=== PATIENT | male | born 1950 | race Caucasian/White ===

== ENCOUNTER 2019-09-25 18:51 | Emergency (ER) | payer OTHER, SELFPAY ==
[2019-09-25] VITALS (25 sets, daily range): BP systolic 175–197; BP diastolic 90–109; PULSE 61–72; RESP 7–27; TEMP 37.2; O2SAT 88–97; BMI 33.3
--- NOTE | 2019-09-25 19:08 | ECG_ITS ---
Measurements Intervals [place] Rate: 59 P: 47 W[place]: 184 QRS: 12 QRSD: 84 T: -2 QT: 394 QTc: 391 SINUS BRADYCARDIA Compared to ECG 02/14/2018 22:25:33 Sinus rhythm no longer present Electronically Signed On 09-26-2019 20:51:46 FUSION ANALYST by Vivien Araya M.D. [id number]
--- NOTE | 2019-09-25 19:08 | XRR_ITS ---
PROCEDURE INFORMATION: Exam: XR Chest, 1 View Exam date and time: 09/25/2019 8:07 PM Age: 69 years old Clinical indication: Shortness of breath; Additional info: SOB TECHNIQUE: Imaging protocol: XR of the chest Views: 1 view. COMPARISON: No relevant prior studies available. FINDINGS: Lungs: Unremarkable. No consolidation. Pleural space: Unremarkable. No pleural effusion. No pneumothorax. Heart/Mediastinum: Unremarkable. No cardiomegaly. Bones/joints: Unremarkable. XR/XR chest 1V portable [id number] IMPRESSION: No acute findings.
[2019-09-25 19:42] LABS: Basophils % 0.5 %; Eosinophils # 0.5 10^3/uL (0.0-0.8); Eosinophils % 8.3 %; Hematocrit 41.6 % (42.0-52.0); Hemoglobin 13.9 g/dL (11.7-16.6); Lymphocytes # 1.9 10^3/uL (0.8-4.8); Lymphocytes % 29.6 %; Mean Corpuscular HGB Conc 33.4 g/dL (30.0-36.0); Mean Corpuscular Hemoglobin 30.6 pg (28.0-34.0); Mean Corpuscular Volume 91.6 fL (80-94); Mean Platelet Volume 11.7 fL (7.4-10.4); Monocytes # 0.5 10^3/uL (0.2-0.9); Monocytes % 7.7 %; Neutrophils # 3.5 10^3/uL (1.8-7.7); Neutrophils % 53.7 %; Nucleated Red Blood Cells % 0 %; Platelet Count 161 10^3/cmm (130-400); Red Blood Count 4.54 10^6/uL (4.1-5.3); Red Cell Distribution Width 12.7 % (12.1-15.1); White Blood Count 6.5 10^3/uL (4.0-10.0)
--- NOTE | 2019-09-25 20:36 | ED_ITS ---
Entered by Lindsay Carranza, acting as scribe for Betsy Devries MD Sep 25, 2019 18:51 HPI - SOB/Dyspnea General: Chief Complaint: Shortness of Breath/Dyspnea Stated Complaint: sob Time Seen by Provider: 09/25/19 20:35 Source: patient, family and RN notes reviewed Mode of arrival: ambulatory Limitations: no limitations History of Present Illness: HPI Narrative: said has been short of breath and has had a cough. He said it began about 2 months ago. He was seen at [facility] last month, treated with antibiotics and steroids for pneumonia but his symptoms have gotten worse. He said his symptoms became worse tonight. He said the symptoms are intermittent and he has been itching across his chest. MD elicited complaint: shortness of breath and cough Pertinent past history: pneumonia Onset (ago): month(s) (2) Context: recent illness and allergen exposure Timing: intermittent Severity: moderate Exacerbating factors: exertion, coughing and allergies Relieving factors: nothing Known history of: other (recent pneumonia) Associated symptoms: Reports cough; Deny abdominal pain, chest pain, fever(s), nausea, polyuria or vomiting Treatment prior to arrival: none Related Data: Home oxygen amount: none Review of Systems General: Reports: 10 or more systems reviewed and unremarkable except in HPI and below Const: Denies: fever or chills Eyes: Denies: change in vision ENMT: Denies: throat pain Card: Denies: chest pain Resp: Reports: shortness of breath GI: Denies: abdominal pain, nausea, vomiting or change in bowel habits Musc: Denies: muscle weakness Skin/Breast: Denies: rash Neuro: Denies: headache Psych: Denies: hopelessness or suicidal ideation Endo: Denies: excessive urination Fabio/Lymph: Denies: easy bruising or easy bleeding All/Imm: Denies: hives PFSH ED PFSH: Statuses (acute, chronic, etc) shown below reflect problem list status as previously entered and may not be historically accurate Social History Smoking and tobacco status: former smoker Physical Exam Const: COMMON NORMALS: no apparent distress, average body habitus, oriented x3, no limitations, healthy appearing, alert and well nourished HENMT: COMMON NORMALS: normocephalic, external ears normal and external nose normal HEAD & SCALP: normocephalic NOSE: external nose normal EXTERNAL EAR: Yes external ears normal Eye: COMMON NORMALS: EOMs intact bilaterally, conjunctivae normal and no scleral icterus CONJUNCTIVA: Yes conjunctivae normal Neck/C-Spine: COMMON NORMALS: full ROM, no lymphadenopathy, supple, no meningeal signs and no JVD CERVICAL SPINE: Yes cervical ROM normal Chest: COMMONS NORMALS: inspection of chest normal Resp: EFFORT & INSPECTION: Yes able to speak in complete sentences and Yes prolonged expiratory phase AUSCULTATION: wheezes Cardio: COMMON NORMALS: no JVD, regular rate, regular rhythm, no gallops, no clicks, no murmurs and no rub RATE: regular rate RHYTHM: regular rhythm GI: COMMON NORMALS: normal to inspection, nondistended, normoactive bowel sounds, soft to palpation and non-tender AUSCULTATION: Yes normoactive bowel sounds PALPATION: Yes soft : COMMON NORMALS: Yes no CVA tenderness BLADDER/KIDNEY EXAM: Yes no CVA tenderness Back/Pelvis: COMMON NORMALS: no CVA tenderness Extremity: COMMON NORMALS: normal to inspection Neuro: COMMON NORMALS: oriented x3 SENSORIUM/ORIENTATION: Yes alert M ENINGEAL SIGNS: Yes no meningeal signs SPEECH: speech normal Psych: COMMON NORMALS: mental status grossly normal, thought process normal, cooperative, affect normal, speech normal, activity/motor behavior normal, denies hallucinations, denies homicidal ideation and denies suicidal ideation SPEECH: Yes normal speech THOUGHT PROCESS: normal thought process Skin: COMMON NORMALS: no rashes or lesions noted GENERAL SKIN EXAM: no rashes or lesions noted Course Vital Signs: Vital signs: Vital Signs Temperature 98.9 F 09/25/19 19:12 Pulse Rate 63 09/25/19 21:35 Respiratory Rate 20 H 09/25/19 21:26 Blood Pressure 195/109 09/25/19 19:12 Pulse Oximetry 93 09/25/19 21:26 MDM - SOB/Dyspnea MDM Narrative: Medical decision making narrative: 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 He is taking cetirizine 10 mg daily I told him he could take that up to 3 times a day and even more if needed. He is also not using a spacer with his inhalers so RT has been called for spacer and training. Sat was 96% on room air while I was in there and he was talking. He is in no distress at this time. I suspect this is his COPD as well as allergy to cedar. Will discharge on short course of steroids as well. Lab Data: Labs: Lab Results 09/25/19 09/25/19 09/25/19 Range/Units 19:28 19:28 21:00 WBC 6.5 (4.0-10.0) 10^3/ uL RBC 4.54 (4.1-5.3) 10^6/u L Hgb 13.9 (11.7-16.6) g/dL Hct 41.6 L (42.0-52.0) % MCV 91.6 (80-94) fL MCH 30.6 (28.0-34.0) pg MCHC 33.4 (30.0-36.0) g/dL RDW 12.7 (12.1-15.1) % Plt Count 161 (130-400) 10^3/c mm MPV 11.7 H (7.4-10.4) fL Neut % (Auto) 53.7 % Lymph % (Auto) 29.6 % [place] % (Auto) 7.7 % Eos % (Auto) 8.3 % Baso % (Auto) 0.5 % Neut # (Auto) 3.5 (1.8-7.7) 10^3/u L Lymph # (Auto) 1.9 (0.8-4.8) 10^3/u L [place] # (Auto) 0.5 (0.2-0.9) 10^3/u L Eos # (Auto) 0.5 (0.0-0.8) 10^3/u L Baso # (Auto) 0.0 (0.0-0.1) 10^3/u L Nucleated RBC % (a uto) 0 % Nucleated RBCs # 0.0 /100WBC PT 13.50 H (10.5-13.3) SECO NDS INR 1.00 (0.8-1.2) Specimen Type Sample Site Sergio Test A-a O2 Gradient (5-10) mmHg Hematocrit (42-52) % Hgb O2 Saturation (95-100) % Methemoglobin (0.4-1.5) % Total Hemoglobin (14-18) g/dL O2 Delivery Device Emt/Dispatcher ID Sodium (136-145) mmol/L Potassium (3.5-5.1) mmol/L Chloride (98-107) mmol/L Carbon Dioxide (22-29) mmol/L Anion Gap (5-19) BUN (8-23) mg/dL Creatinine (0.7-1.2) mg/dL GFR Calculation (90-130) mL/min Glucose (65-115) mg/dL Calcium (8.5-10.5) mg/dL Total Bilirubin (0.15-1.2) mg/dL AST (0-40) U/L ALT (0-41) U/L Alkaline Phosphata se (40-130) IU/L NT-Pro-B Natriuret Pep (0-125) pg/mL Total Protein (6.6-8.7) g/dL Albumin (3.5-5.2) g/dL Globulin (1.3-4.6) g/dL Influenza Type A A g Negative (Negative) POC Influenza B Ag Negative (Negative) 09/25/19 09/25/19 Range/Units 21:25 21:40 WBC (4.0-10.0) 10^3/ uL RBC (4.1-5.3) 10^6/u L Hgb (11.7-16.6) g/dL Hct (42.0-52.0) % MCV (80-94) fL MCH (28.0-34.0) pg MCHC (30.0-36.0) g/dL RDW (12.1-15.1) % Plt Count (130-400) 10^3/c mm MPV (7.4-10.4) fL Neut % (Auto) % Lymph % (Auto) % [place] % (Auto) % Eos % (Auto) % Baso % (Auto) % Neut # (Auto) (1.8-7.7) 10^3/u L Lymph # (Auto) (0.8-4.8) 10^3/u L [place] # (Auto) (0.2-0.9) 10^3/u L Eos # (Auto) (0.0-0.8) 10^3/u L Baso # (Auto) (0.0-0.1) 10^3/u L Nucleated RBC % (a uto) % Nucleated RBCs # /100WBC PT (10.5-13.3) SECO NDS INR (0.8-1.2) Specimen Type Arterial Sample Site Radial, right Sergio Test Pos A-a O2 Gradient 38.1 H (5-10) mmHg Hematocrit 44.4 (42-52) % Hgb O2 Saturation 92.3 L (95-100) % Methemoglobin 0.8 (0.4-1.5) % Total Hemoglobin 14.5 (14-18) g/dL O2 Delivery Device Room air Emt/Dispatcher ID vossa Sodium 138 (136-145) mmol/L Potassium 3.9 (3.5-5.1) mmol/L Chloride 101 (98-107) mmol/L Carbon Dioxide 23 (22-29) mmol/L Anion Gap 17.9 (5-19) BUN 20 (8-23) mg/dL Creatinine 1.1 (0.7-1.2) mg/dL GFR Calculation 66.8 L (90-130) mL/min Glucose 176 H (65-115) mg/dL Calcium 9.4 (8.5-10.5) mg/dL Total Bilirubin 0.3 (0.15-1.2) mg/dL AST 27 (0-40) U/L ALT 25 (0-41) U/L Alkaline Phosphata se 50 (40-130) IU/L NT-Pro-B Natriuret Pep 212 H (0-125) pg/mL Total Protein 7.0 (6.6-8.7) g/dL Albumin 4.6 (3.5-5.2) g/dL Globulin 2.4 (1.3-4.6) g/dL Influenza Type A A g (Negative) POC Influenza B Ag (Negative) Imaging Data^: CXR: Attestation: I personally reviewed and interpreted this imaging study as follows: My impression: wnl. no infiltrate EKG Data^: EKG 1: Attestation: I personally reviewed and interpreted this EKG as follows: EKG Interpretation Date: 09/25/19 EKG interpretation time: 21:00 Prior EKG tracings: not available for review Interpretation: Sinus rate 59 poor R wave progression no ST elevation, nonspecific ST changes ABG Data^: ABG Interpretation 1: Attestation: I personally reviewed and interpreted this ABG as follows: Interpretation: wnl Discharge Plan Discharge Patient Disposition: Home, Self-Care Clinical Impression: COPD (chronic obstructive pulmonary disease) Qualifiers: COPD type: unspecified COPD Qualified Code(s): J44.9 - Chronic obstructive pulmonary disease, unspecified Allergies Qualifiers: Encounter type: initial encounter Qualified Code(s): T78.40XA - Allergy, unspecified, initial encounter Condition: Good Prescriptions: New prednisone 20 mg tablet 20 mg PO BID 5 Days Qty: 10 RF: 0 Referrals: Hill Gil, [Family Provider] - 4-7 days (call your doctor tomorrow to arrange next available appointment for ER follow-up. Return to the ER if worse at any time.) Patient Instructions: Chronic Obstructive Pulmonary Disease (ED), Allergies (ED) Coding Level of Care Code ED Associate Manager [employer] for [employer] Exam Problem Focused The documentation recorded by the Dillon wilson Valerie R, accurately reflects the service I personally performed and the decisions made by , Betsy Devries MD Sep 25, 2019 18:51
[2019-09-25] MEDS: predniSONE 20 mg Tablet 60 MG PO (21:07)
[2019-09-25] MEDS: ipratropium-albuterol 3 mL Neb INHALATION (21:26)
[2019-09-25 21:40] LABS: Influenza A by IFA Negative (Negative); Influenza B by IFA Negative (Negative)
[2019-09-25 21:48] LABS: Alveolar-Arterial Oxygen Gradi 38.1 mmHg (5-10); Arterial Blood Gas Hematocrit 44.4 % (42-52); Blood Gas Allen Test Pos; Blood Gas Sample Site Radial, right; Blood Gas Sample Type Arterial; HGB O2 Sat 92.3 % (95-100); Methemoglobin 0.8 % (0.4-1.5); Oxygen Device ROOM AIR; Total Hemoglobin 14.5 g/dL (14-18)
[2019-09-25 22:10] LABS: Alanine Aminotransferase 25 U/L (0-41); Albumin Level 4.6 g/dL (3.5-5.2); Alkaline Phosphatase 50 IU/L (40-130); Anion Gap 17.9 (5-19); Aspartate Amino Transferase 27 U/L (0-40); Blood Urea Nitrogen 20 mg/dL (8-23); Calcium 9.4 mg/dL (8.5-10.5); Carbon Dioxide 23 mmol/L (22-29); Chloride 101 mmol/L (98-107); Globulin 2.4 g/dL (1.3-4.6); Glomerular Filtration Rate 66.8 mL/min (90-130); Glucose 176 mg/dL (65-115); NT Pro B Type Natriuretic Pept 212 pg/mL (0-125); Potassium 3.9 mmol/L (3.5-5.1); Sodium 138 mmol/L (136-145); Total Bilirubin 0.3 mg/dL (0.15-1.2)
== END 2019-09-25 22:30 | disposition home or self-care (01) ==
PROVIDERS: Emergency Medicine; Emergency Provider Emergency Medicine; Family Provider Emergency Medicine Emergency Medical Services
DX: J44.9 Chronic obstructive pulmonary disease, unspecified (principal); T78.40XA Allergy, unspecified, initial encounter; Z87.891 Personal history of nicotine dependence
CPT/HCPCS: 36415; 36600; 71045; 80053; 82810; 83880; 85025; 85610; 87804; 93005; 94640; 99283; 99284; J7512

== ENCOUNTER → 2022-01-04 09:07 | Outpatient (BNVA) | payer OTHER, SELFPAY | PROVIDERS: Family Provider Emergency Medicine Emergency Medical Services; Referring Provider Emergency Medicine Emergency Medical Services; Visit Provider Surgery | DX: Z12.11 Encounter for screening for malignant neoplasm of colon (principal) | CPT/HCPCS: 99203 ==

== ENCOUNTER → 2024-01-18 11:02 | Outpatient (BNVA) | payer OTHER, SELFPAY | PROVIDERS: Family Provider Emergency Medicine Emergency Medical Services; Referring Provider Emergency Medicine Emergency Medical Services; Visit Provider Surgery | DX: Z12.11 Encounter for screening for malignant neoplasm of colon (principal) | CPT/HCPCS: 99203; 99214 ==

== ENCOUNTER 2024-02-15 10:38 | Day surgery (SDC) | payer OTHER, SELFPAY ==
[2024-02-15 10:53] VITALS: BP 161/86; PULSE 60; RESP 16; TEMP 36.2; O2SAT 96; BMI 32.3
[2024-02-15] MEDS: sodium chloride 0.9% 1,000 ML 30 ML IV (11:01)
--- NOTE | 2024-02-15 11:02 | P.ANESASSM_ITS ---
Pre-Anesthetic Assessment Height/Weight: Height 1.88 m Weight 114.305 kg Temp Pulse Resp BP Pulse Ox O2 Del Method 97.2 F L 60 16 161/86 96 Room Air 02/15/24 10:53 02/15/24 10:53 02/15/24 10:53 02/15/24 10:53 02/15/24 10:53 02/15/24 10:53 Preop Diagnosis: screening Operation Date: 02/15/24 11:55 Proposed Procedures p Colonoscopy 20279, G0121, Z12.11(Not Applicable) - Kirill Patel MD Familial anesthetic complications: none Was Beta Addie taken within 24 hours: N/A Was Clonidine taken within 24 hours: N/A Last intake: Intake Last Liquid Date 02/14/24 Last Liquid Time 18:00 Last Solid Date 02/13/24 Last Solid Time 17:00 Social Alcohol (liquor.) and No tobacco cannibas use 02/12/24 last reported use. Exam alert, oriented x 3, clear to auscultation bilaterally and regular rate & rhythm sutures in left eye lid recent blepharoplasty. Airway Submandibular: within normal limits Cervical ROM: within normal limits Mallampati: Class III Dentition: full and other (lower front tooth missing.) Pulmonary Chronic Obstructive Pulmonary Disease CV/HEM Hypertension None reported Hepatic None reported GI Gastroesophageal Reflux Disease (rare) Metabolic Diabetes Mellitus (type 2 non-insulin dependant.) and Hyperlipidemia [facility] None reported Neuropsych None reported Anesthetic Plan ASA status: 3 Anesthesia: MAC Medications/Allergies Home Medications Medication Instructions Recorded Confirmed Last Taken Type allopurinol 100 mg tablet 100 mg PO DAILY 01/04/22 02/15/24 02/14/24 History glipizide 5 mg tablet 5 mg PO DAILY 01/04/22 02/15/24 02/14/24 History simvastatin 10 mg tablet 10 mg PO DAILY 01/04/22 02/15/24 02/14/24 History valsartan 40 mg tablet 20 mg PO BID 01/04/22 02/15/24 02/14/24 History empagliflozin 10 mg tablet 10 mg PO DAILY 01/18/24 02/15/24 02/14/24 History (Jardiance) sitagliptin 100 mg tablet 100 mg PO DAILY 02/13/24 02/15/24 02/14/24 History Allergies Allergy/AdvReac Type Severity Reaction Status Date / Time No Known Allergies Allergy Verified 01/18/24 11:06 Current Medications Generic Name Dose Route Start Last Admin Trade Name Clarkeq PRN Reason Stop Dose Admin Sodium Chloride 1,000 mls @ 30 mls/hr 02/15/24 10:45 02/15/24 11:01 Sodium Chloride 0.9% IV 30 mls/hr .Q24H MONO Administration PFSH Anesthesia Family History Other CAD (coronary artery disease) Cancer Diabetes Hypertension Denies family history of Dementia Chronic kidney disease (CKD) Anesthesia complication Stroke Social History Smoking and tobacco/nicotine status: never used tobacco/nicotine Alcohol intake: current Alcohol intake frequency: few times a week Substance/Drug Use: current Substance/Drug use frequency: few times a week Lives independently: Yes Household members: spouse Marital status: Data Anesthesia Cardiac Studies: No Data to Display
--- NOTE | 2024-02-15 11:02 | W.PM.OPSUD ---
Surgery/Procedure H&P Update DATE OF PROCEDURE: February 15, 2024 DATE H&P PERFORMED: 01/18/24 H&P UPDATE INFORMATION: I have reviewed H&P completed within last 30 days, I have examined patient prior to procedure, No changes to prior documentation and H&P is in [facility] EMR on date indicated PLANNED PROCEDURE: Operation Date: 02/15/24 11:55 Proposed Procedures p Colonoscopy 74324, G0121, Z12.11(Not Applicable) - Kirill Patel MD
[2024-02-15 11:06] LABS: Glucose Point of Care 139 mg/dL (70-110)
[2024-02-15 11:40] VITALS: BP 104/61; PULSE 55; RESP 18; TEMP 36.1; O2SAT 96
[2024-02-15 11:51] VITALS: BP 136/77; PULSE 61; RESP 18; O2SAT 95
[2024-02-15 11:59] VITALS: BP 119/75; PULSE 55; RESP 18; O2SAT 97
--- NOTE | 2024-02-15 12:24 | ANE.PACU2 ---
Inpatient post-anesthesia follow up: Airway intact: Yes Vital signs: Temperature 97.0 F Pulse Rate 55 Respiratory Rate 18 Blood Pressure 119/75 Pulse Oximetry 97 Oxygen Delivery Me thod Room Air Oxygen Flow Rate Fraction of Inspir ed Oxygen Hydration adequate: Yes Nausea and vomiting: No Pain level: 1 Mental status: Baseline
== END 2024-02-15 12:16 | disposition home or self-care (01) ==
PROVIDERS: Family Provider Emergency Medicine Emergency Medical Services; PCP Nurse Practitioner Family; Visit Provider Surgery
PROC: 0DJD8ZZ Inspection of Lower Intestinal Tract, Via Natural or Artificial Opening Endoscopic (ICD-10-PCS; CPT 45378; principal; 2024-02-15 11:55)
DX: Z12.11 Encounter for screening for malignant neoplasm of colon (principal); D12.5 Benign neoplasm of sigmoid colon; D12.8 Benign neoplasm of rectum; J44.9 Chronic obstructive pulmonary disease, unspecified; I10 Essential (primary) hypertension; K21.9 Gastro-esophageal reflux disease without esophagitis; E78.5 Hyperlipidemia, unspecified; E11.9 Type 2 diabetes mellitus without complications
CPT/HCPCS: 36416; 45380; 45385; 82962; 88305; J2704; J7030

== ENCOUNTER → 2024-03-06 12:36 | Outpatient (BNVA) | payer OTHER, SELFPAY | PROVIDERS: Family Provider Emergency Medicine Emergency Medical Services; PCP Nurse Practitioner Family; Visit Provider Surgery | DX: Z09 Encounter for follow-up examination after completed treatment for conditions other than malignant neoplasm (principal); R03.0 Elevated blood-pressure reading, without diagnosis of hypertension | CPT/HCPCS: 99213 ==